=== PATIENT | male | born 1975 | race Caucasian/White ===

== ENCOUNTER → 2017-01-16 | Outpatient (CLI) | payer OTHER ==
[~2017-01-16] MED LIST: AXIR30SO TOPICAL; FLUT50SP EACH NARE; HYDR-3516 PO; VITA500030 CHEW
[2017-01-16 11:23] LABS: WET PREP SPERM NONE SEEN /HPF (NONE SEEN)
== END ==
LOC: CLAB 10:37
PROVIDERS: ATTEND Urology
DX: Z98.52 Vasectomy status (principal)
CPT/HCPCS: 89321

== ENCOUNTER → 2017-01-30 | Outpatient (CLI) | payer OTHER ==
[2017-01-30 12:44] LABS: WET PREP SPERM NONE SEEN /HPF (NONE SEEN)
== END ==
LOC: CLAB 11:56
PROVIDERS: ATTEND Urology
DX: Z98.52 Vasectomy status (principal)
CPT/HCPCS: 89321

== ENCOUNTER 2017-12-27 21:21 | Emergency (ER) | payer OTHER ==
[~2017-12-27] VITALS: Ht 182.9 cm; Wt 125.0 kg
[2017-12-27 21:43] VITALS: BP 113/69; PULSE 80; RESP 18; TEMP 97.8; O2SAT 99
[2017-12-27 22:32] VITALS: BP 114/62; PULSE 88; RESP 20; TEMP 98; O2SAT 98
[2017-12-27] MEDS ORDERED: SODIUM CHLOR 0.9% 1000 ML INJ 1,000 ML IV SCH (23:26)
[2017-12-27] MEDS ORDERED: SODIUM CHLORIDE 0.9% FLUSH 10 ML FLUSH IV FLUSH PRN (23:30)
[2017-12-27 23:31] VITALS: RESP 20; O2SAT 91
[2017-12-27 23:53] LABS: AUTOMATED NEUTROPHIL # 12.8 TH/MM3 (1.8-7.7); BASOPHIL # 0.2 TH/MM3 (0-0.2); BASOPHIL % 1.3 % (0.0-2.0); EOSINOPHIL % 0.1 % (0.0-4.0); HEMATOCRIT 46.3 % (39.0-51.0); HEMOGLOBIN 16.8 GM/DL (13.0-17.0); LYMPH % 13.7 % (9.0-44.0); LYMPHOCYTE # 2.2 TH/MM3 (1.0-4.8); MEAN CELL VOLUME 87.7 FL (80.0-100.0); MEAN CORPUSCULAR HEMOGLOBIN 31.7 PG (27.0-34.0); MEAN CORPUSCULAR HGB CONC 36.2 % (32.0-36.0); MEAN PLATELET VOLUME 7.8 FL (7.0-11.0); MONO % 4.5 % (0.0-8.0); MONOCYTE # 0.7 TH/MM3 (0-0.9); NEUT % 80.4 % (16.0-70.0); PLATELET COUNT 201 TH/MM3 (150-450); RED BLOOD COUNT 5.28 MIL/MM3 (4.50-5.90); RED CELL DISTRIBUTION WIDTH 13.1 % (11.6-17.2)
[2017-12-28 00:14] LABS: ALKALINE PHOSPHATASE 54 U/L (45-117); TOTAL BILIRUBIN ADULT 0.4 MG/DL (0.2-1.0); TOTAL PROTEIN 7.5 GM/DL (6.4-8.2)
[2017-12-28 00:20] LABS: ALT (GPT) 33 U/L (12-78); AST (GOT) 25 U/L (15-37); BICARBONATE 28.2 MEQ/L (21.0-32.0); BLOOD UREA NITROGEN 15 MG/DL (7-18); CALCIUM 8.6 MG/DL (8.5-10.1); CHLORIDE 105 MEQ/L (98-107); CREATININE 1.08 MG/DL (0.60-1.30); GLOMERULAR FILTRATION RATE 75 ML/MIN (>89); GLUCOSE,RANDOM 122 MG/DL (74-106); SODIUM (NA) 143 MEQ/L (136-145)
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
[2017-12-28 01:22] LABS: BANDS 11 % (0-6); LYMPHOCYTES 12 % (9-44); MONOCYTES 1 % (0-8); NEUTROPHIL # MANUAL DIFF 13.9 TH/MM3 (1.8-7.7); POLYS (SEG NEUTROPHILS) 76 % (16-70)
[2017-12-28 02:16] VITALS: BP 114/63; PULSE 86; RESP 18; O2SAT 95
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
== END 2017-12-28 03:58 | disposition home or self-care (01) ==
LOC: NEDAMB 21:21 → NEPC 12-28 03:58
DX: F10.129 Alcohol abuse with intoxication, unspecified (principal); S01.511A Laceration without foreign body of lip, initial encounter; J32.9 Chronic sinusitis, unspecified; F41.9 Anxiety disorder, unspecified; F32.9 Major depressive disorder, single episode, unspecified; J45.909 Unspecified asthma, uncomplicated; Z87.19 Personal history of other diseases of the digestive system; Z79.899 Other long term (current) drug therapy; W51.XXXA Accidental striking against or bumped into by another person, initial encounter
CPT/HCPCS: 70450; 70486; 80053; 80307; 85007; 85027; 96360; 96361; 99284; J7030